=== PATIENT | female | born 1945 | race Two or more races ===

== ENCOUNTER 2018-12-06 11:31 | Emergency (ER) | payer OTHER ==
[~2018-12-06] VITALS: Ht 152.4 cm; Wt 77.6 kg
[~2018-12-06 11:31] MED LIST: ATENOLOL25 GM MC; CLINDAMYCIN HC300 MG; CLONAZEPAM0.25 MG/TA PO; DIOVAN320 MG; DIPHENOXYLATE-A1 TA1 PO; GABAPENTIN600 MG; KETO10TA2 PO; LEVSIN0.125 MG PO; ZANTAC300 MG PO
[2018-12-06] MEDS ORDERED: NEURONTIN300 MG PO (12:05)
[2018-12-06] MEDS ORDERED: SINGULAIR10 MG PO (12:05)
[2018-12-06] MEDS ORDERED: LEVOTHYROXINE25 MCG PO (12:05)
[2018-12-06] MEDS ORDERED: CLONAZEPAM0.25 MG PO (12:05)
[2018-12-06] MEDS ORDERED: ASPIR 8181 MG PO (12:06)
[2018-12-06] MEDS ORDERED: TOPROL XL25 M1 PO (12:06)
[2018-12-06] MEDS ORDERED: ATACAND HCT 321 EAC1 PO (12:07)
[2018-12-06] MEDS ORDERED: PRILOSEC OTC20 MG PO (12:07)
== END 2018-12-06 18:55 | disposition home or self-care (01) ==
LOC: ER 11:31
DX: J40 Bronchitis, not specified as acute or chronic (principal)

== ENCOUNTER 2019-04-21 07:43 | Outpatient (CLI) | payer OTHER ==
[~2019-04-21 07:43] MED LIST changes: +ASPIR 8181 MG PO; +ATACAND HCT 321 EAC1 PO; +CLONAZEPAM0.25 MG PO; +LEVOTHYROXINE25 MCG PO; +NEURONTIN300 MG PO; +PRILOSEC OTC20 MG PO; +SINGULAIR10 MG PO; +TOPROL XL25 M1 PO
== END 2019-04-21 07:47 | disposition home or self-care (01) ==
LOC: SONOGRAMA 07:43
DX: E04.2 Nontoxic multinodular goiter (principal)

== ENCOUNTER 2024-10-28 07:12 | Emergency (ER) | payer OTHER ==
[~2024-10-28] VITALS: Ht 160 cm; Wt 76.7 kg
[~2024-10-28 07:12] MED LIST changes: +ACID REDUCER20 M1 PO; +ADULT LOW DOSE81 M1 PO; +ATACAND HCT 161 EACH PO; +GABAP PO
[2024-10-28] MEDS ORDERED: ANASTROZOLE1 MG PO (07:59)
[2024-10-28] MEDS ORDERED: FLUCONAZOLE150 MG PO (08:01)
[2024-10-28] MEDS ORDERED: CLINDAMYCIN HC300 MG PO (08:01)
== END 2024-10-28 08:58 | disposition home or self-care (01) ==
LOC: ER 07:12
DX: R21 Rash and other nonspecific skin eruption (principal)

== ENCOUNTER 2025-01-13 08:17 | Outpatient (CLI) | payer OTHER ==
[~2025-01-13 08:17] MED LIST changes: +ANASTROZOLE1 MG PO; +CLINDAMYCIN HC300 MG PO; +FLUCONAZOLE150 MG PO
== END 2025-01-13 08:32 | disposition home or self-care (01) ==
LOC: MRI 08:17
PROVIDERS: ATTEND Internal Medicine
DX: K21.9 Gastro-esophageal reflux disease without esophagitis (principal); R93.2 Abnormal findings on diagnostic imaging of liver and biliary tract; M54.17 Radiculopathy, lumbosacral region
CPT/HCPCS: 72148; 74181

== ENCOUNTER 2025-01-18 07:17 | Outpatient (CLI) | payer OTHER | END 2025-01-18 07:18 | disposition home or self-care (01) | LOC: TOM 07:17 | PROVIDERS: ATTEND Internal Medicine Gastroenterology | DX: K57.30 Diverticulosis of large intestine without perforation or abscess without bleeding (principal); D12.8 Benign neoplasm of rectum ==